=== PATIENT | male | born 1965 | race Caucasian/White ===

== ENCOUNTER 2024-05-21 20:43 | Emergency (ER) | payer SELFPAY ==
--- NOTE | ~2024-05-21 | XR_ITS ---
EXAMINATION: XR chest 2V DATE: 05/21/2024 21:08 INDICATION: Shortness of breath. TECHNIQUE: Frontal and lateral views of the chest were obtained. COMPARISON: None. FINDINGS: Calcified right lung nodules and calcified right hilar lymph nodes are consistent with old granulomatous disease. No pleural effusion or pneumothorax. The heart size is normal. There is mild c hronic anterior wedging of multiple vertebral bodies. IMPRESSION: 1. No acute cardiopulmonary disease. Reviewed, dictated and finalized at location A. RACTS INTERN
--- NOTE | ~2024-05-21 | CT_ITS ---
EXAMINATION: CTA chest PE protocol DATE: 05/22/2024 00:53 INDICATION: Shortness of breath. Tachycardia. TECHNIQUE: Computed tomography (CT) pulmonary angiogram of the chest was performed with 100 mL Omnipa que-350 intravenous contrast. Additional 3D reconstructions utilizing coronal maximum intensity proje ction (MIP) were performed. Automated exposure control and iterative reconstruction technique were em ployed. The dose-length product was 409.17 mGy-cm. COMPARISON: None FINDINGS: No pulmonary embolus and. There are few scattered small calcified pulmonary nodules along with calcif ied left hilar lymph nodes consistent with old granulomatous disease. Mild dependent atelectasis in t he bilateral lower lobes. No pneumonia, pulmonary edema, pleural effusion or pneumothorax. Borderline heart size. No pericardial effusion. Mildly aneurysmal ascending thoracic aorta measuring up to 4.2 cm in maximal diameter. No dissection. No pathologically enlarged thoracic lymphadenopathy. A couple cystic lesions at the right kidney the larger partially visualized measuring at least 3.9 cm. The sma ller measuring 3.1 cm with partial peripheral rim calcification and suggestion of a possible 405 mm p eripheral enhancing nodular component. There is also an 11 mm 3 hypoattenuation lesion at the left ki dney which could represent renal cell carcinoma or a proteinaceous/hemorrhagic cyst. Peripherally jennifer cified gallstone in the otherwise normal-appearing gallbladder. Mild thoracic spondylosis with chroni c mild compression fractures at T7 and T10. IMPRESSION: 1. No pulmonary emphysema or other acute cardiopulmonary disease. Reverse 2. Mildly aneurysmal ascending thoracic aorta measuring up to 4.2 cm maximal diameter. 3. A couple indeterminate renal lesions which could represent complex cysts or renal cell carcinomas. Would recommend further evaluation with pre and postcontrast MRI. 4. Cholelithiasis. Reviewed, dictated and finalized at location A. NICAL AGRONOMIST IMPRESSION: 1. No pulmonary emphysema or other acute cardiopulmonary disease. Reverse 2. Mildly aneurysmal ascending thoracic aorta measuring up to 4.2 cm maximal di ameter. 3. A couple indeterminate renal lesions which could represent complex cysts or renal cell carcinomas. Would recommend further evaluation with pre and postcont rast MRI. 4. Cholelithiasis.
--- NOTE | ~2024-05-21 | CT_ITS ---
EXAMINATION: CT brain wo con DATE: 05/22/2024 00:53 INDICATION: Altered mental status and vision changes TECHNIQUE: Computed tomography (CT) of the head was performed without intravenous contrast. Sagittal and coronal reconstructions were performed. The mA was adjusted according to patient size. Iterative reconstruction technique was employed. The dose-length product was 1059.33 mGy-cm. COMPARISON: None FINDINGS: The corrected the anterior limb of the left internal capsule. No acute intracranial hemorrhage, acute infarction or abnormal extra axial fluid collection. There is mild scattered white matter hypoattenu ation consistent with chronic small vessel ischemic disease. Symmetric prominence of the sulci and ve ntricles consistent with mild age-appropriate diffuse cerebral volume loss. Ventricles are normal and symmetric. No mass/mass effect. The orbits, paranasal sinuses and mastoid air cells are normal. IMPRESSION: 1. Small old lacunar infarct at the anterior left internal capsule. No acute intracranial process. 3. Age-related changes including mild blunting loss and mild scattered white matter hypoattenuation c onsistent with chronic small vessel ischemic disease. Reviewed, dictated and finalized at location A. BAND OPERATOR IMPRESSION: 1. Small old lacunar infarct at the anterior left internal capsule. No acute in tracranial process. 3. Age-related changes including mild blunting loss and mild scattered white ma tter hypoattenuation consistent with chronic small vessel ischemic disease.
[2024-05-21 20:45] VITALS: BP 186/108; PULSE 112; RESP 16; TEMP 36.4; O2SAT 99
--- NOTE | 2024-05-21 20:51 | ECG_ITS ---
Test Date: 2024-05-21 20:57:50 Measurements Intervals [place] Rate: 105 P: 26 AK: 124 QRS: -15 QRSD: 99 T: 29 QT: 344 QTc: 455 Interpretive Statements SINUS TACHYCARDIA POSSIBLE LEFT ATRIAL ENLARGEMENT [-0.1mV P WAVE IN V1/V2] POSSIBLE LEFT VENTRICULAR HYPERTROPHY [VOLTAGE CRITERIA PLUS LAE OR QRS WIDENING] No previous ECG available for comparison Electronically Signed On 05-22-2024 08:56:08 LEAD ENTERPRISE ARCHITECT by Liv Resendez M.D.
[2024-05-21 21:08] LABS: Basophils Absolute Auto 0.1 K/mm3 (0.0-0.1); Basophils Percent Auto 0.6 % (0.2-1.2); Eosinophils Absolute Auto 0.5 K/mm3 (0-0.3); Eosinophils Percent Auto 5.3 % (0-4.4); Hematocrit 42.5 % (42.0-52.0); Hemoglobin 14.7 g/dL (14.0-18.0); Immature Granulocyte Absolute 0.02 K/mm3 (0.00-0.031); Immature Granulocyte Percent A 0.2 % (0-0.5); Lymphocytes Absolute Auto 1.58 K/mm3 (0.9-3.2); Lymphocytes Percent Auto 17.7 % (18.3-44.2); Mean Corpuscular HGB Conc 34.6 g/dl (32-36); Mean Corpuscular Hemoglobin 31.2 pg (26-34); Mean Corpuscular Volume 90.2 fl (80-100); Mean Platelet Volume 9.3 fl (7.4-10.4); Monocytes Absolute Auto 0.9 K/mm3 (0.1-0.6); Monocytes Percent Auto 10.2 % (2.6-8.5); Neutrophils Absolute Auto 5.9 K/mm3 (1.3-6.7); Platelet Count Result 330 k/mm3 (150-375); Red Blood Count 4.71 M/mm3 (4.6-6.20); White Blood Count 8.9 K/mm3 (4.5-10.0)
[2024-05-21 21:20] LABS: Alanine Aminotransferase 22 U/L (6-50); Albumin Level 4.5 g/dL (3.5-5.1); Alkaline Phosphatase 70 U/L (38-126); Anion Gap 8 mmol/L (4-12); Aspartate Amino Transferase 35 U/L (17-59); Blood Urea Nitrogen 21 mg/dL (9-20); Calcium 9.3 mg/dL (8.4-10.2); Carbon Dioxide 25 mmol/L (22-30); Chloride 104 mmol/L (98-107); Estimated CRCL calculation 49 ml/min; Estimated Glomerular Filt Rate 45; Glucose 108 mg/dL (65-110); Lipase 118 U/L (23-300); Potassium 3.5 mmol/L (3.4-5.0); Sodium 137 mmol/L (137-145)
[2024-05-21 21:24] LABS: Prothrombin Time 13.5 Seconds (11.1-14.7)
[2024-05-21 21:25] LABS: Partial Thromboplastin Time 26.6 Seconds (22.3-36.8)
[2024-05-21 21:31] LABS: Troponin I < 0.012 ng/mL (0.000-0.034)
[2024-05-21 23:08] VITALS: PULSE 97
[2024-05-21 23:09] VITALS: BP 169/116; PULSE 100; RESP 19; O2SAT 98
[2024-05-21 23:16] VITALS: BP 165/114; PULSE 98; RESP 21; O2SAT 97
--- NOTE | 2024-05-21 23:55 | ECG_ITS ---
Test Date: 2024-05-22 00:06:28 Measurements Intervals [place] Rate: 92 P: 35 CT: 140 QRS: -15 QRSD: 109 T: 15 QT: 370 QTc: 458 Interpretive Statements SINUS RHYTHM POSSIBLE LEFT ATRIAL ENLARGEMENT [-0.1mV P-WAVE IN V1/V2] POSSIBLE LEFT VENTRICULAR HYPERTROPHY [VOLTAGE CRITERIA PLUS LAE OR QRS WIDENING] Compared to ECG 05/21/2024 20:57:50 Sinus tachycardia no longer present Electronically Signed On 05-22-2024 12:58:58 EXPENSE CLERK by Liv Resendez M.D.
[2024-05-22] MEDS: SODIUM CHLORIDE 0.9% IV 1,000 ML 999 ML IV CONT (00:19)
[2024-05-22 00:53] LABS: Troponin I < 0.012 ng/mL (0.000-0.034)
--- NOTE | 2024-05-22 01:25 | ED_ITS ---
HPI - Dizziness General Chief Complaint: Dizziness Stated Complaint: dizzy/short of breath Time Seen by Provider: 05/21/24 22:46 History of Present Illness HPI Narrative: Patient is a 58-year-old male who presents to the ER with complaints altered mental status, vision changes, dyspnea with exertion, and dizziness. He reports around 7:00 a.m. this morning he was at work and he started experiencing vision changes. Patient reports he did not tell anyone, but then as the day went on he was doing a task that is very routine for him and his co-worker pointed out that he was doing it incorrectly. Patient reports this was due to his brain being foggy. he reports throughout the day he has been seeing bright lights. patient also reports when he is walking he become short of breath. He is supposed to be on blood pressure medication but has not taken it 6 months because he does not have time to see a primary care provider. Patient reports he had a stroke 13 years ago. He denies any chest pain, back pain, or fevers. Related Data Allergies Allergy/AdvReac Type Severity Reaction Status Date / Time No Known Allergies Allergy Verified 05/21/24 23:07 Review of Systems 2 Review of Systems: All systems reviewed & are unremarkable except as noted in HPI and below Exam 2 Narrative: GENERAL: Well appearing, well-nourished, non-toxic, in no acute distress. HEAD: Normocephalic, atraumatic. NECK: Supple. No adenopathy, no masses. RESPIRATORY: Airway patent, respirations nonlabored. Clear to auscultation bilaterally, no rales, rhonchi, wheezing. CARDIOVASCULAR: Tachycardia and rhythm without murmurs, rubs, or gallops. Peripheral pulses 2+ and equal bilaterally. ABDOMINAL: Soft, nontender, nondistended, no hepatosplenomegaly. Normoactive BS. MUSCULOSKELETAL: Moves all extremities. Strength/ROM intact without gross deformities. SKIN: Warm, dry, normal color. No rashes. NEURO: A&O X3. Speech clear. Cranial nerves II-XII grossly intact. Steady gait. No ataxic movements. PSYCHIATRIC: Appropriate mood and affect. Normal interaction. Course Vital Signs Vital signs: Vital Signs Temperature 36.4 C 05/21/24 20:45 Pulse Rate 112 H 05/21/24 20:45 Respiratory Rate 16 05/21/24 20:45 Blood Pressure 186/108 H 05/21/24 20:45 Pulse Oximetry 99 05/21/24 20:45 Oxygen Delivery Room Air 05/21/24 20:45 Temperature 36.4 C 05/21/24 20:45 Pulse Rate 86 05/22/24 02:01 Respiratory Rate 17 05/22/24 02:01 Blood Pressure 149/100 H 05/22/24 02:01 Pulse Oximetry 98 05/22/24 02:01 Oxygen Delivery Room Air 05/21/24 20:45 MDM - Dizziness MDM Narrative Medical decision making narrative: Patient is a 58-year-old male who presents to the ER with complaints altered mental status, vision changes, dyspnea with exertion, and dizziness. He reports around 7:00 a.m. this morning he was at work and he started experiencing vision changes. Patient reports he did not tell anyone, but then as the day went on he was doing a task that is very routine for him and his co-worker pointed out that he was doing it incorrectly. Patient reports this was due to his brain being foggy. he reports throughout the day he has been seeing bright lights. patient also reports when he is walking he become short of breath. He is supposed to be on blood pressure medication but has not taken it 6 months because he does not have time to see a primary care provider. Patient reports he had a stroke 13 years ago. He denies any chest pain, back pain, or fevers. Labs Ordered: CBC, CMP, coags, COVID Imaging Ordered: CTA chest Results: Patient's CTA chest indicates no acute abnormality. His head CT scan was unremarkable. Patient's CBC was unremarkable. His coags were unremarkable. Patient's CMP indicates a BUN of 21, creatinine of 1.6, GFR of 45. He will be treated with 1 L normal saline IV bolus to treat patient's probable dehydration. Diagnosis: mild dehydration Patient Education/Shared MDM: 0200- Patient reports he has a massive headache. He told his nurse that in case the nurse practitioner needs to know I am not driving, so she can give me something strong, but I am allergic to some pain medications. Pt was offered a dose of Toradol IV, but he declined. 0300- Upon reexamination patient reports he is feeling better. Results shared with patient. He reports he is ready to be discharged home. Patient will not be discharged with any new prescriptions. He was advised to try to keep hydrated. Pt verbalizes understanding and is in agreement with plan. 0330- Patient is now requesting Toradol for pain control. Will give patient a dose before he is discharged home. Differential Diagnosis Differential diagnosis: Likely cerebrovascular accident, transient cerebral ischemia and other (dehydration, pulmonary embolism) Lab Data Attestation: I reviewed the patient's lab results. 05/21/24 21:01 05/21/24 21:01 Labs: Lab Results 05/21/24 05/22/24 Range/Units 21:01 00:13 WBC 8.9 (4.5-10.0) K/mm3 RBC 4.71 (4.6-6.20) M/mm3 Hgb 14.7 (14.0-18.0) g/dL Hct 42.5 (42.0-52.0) % MCV 90.2 (80-100) fl MCH 31.2 (26-34) pg MCHC 34.6 (32-36) g/dl RDW 13.0 (11.5-14.5) % Plt Count 330 (150-375) k/mm3 MPV 9.3 (7.4-10.4) fl Immature Gran % (Auto) 0.2 (0-0.5) % Neut % (Auto) 66.0 (45.5-73.1) % Lymph % (Auto) 17.7 L (18.3-44.2) % [place] % (Auto) 10.2 H (2.6-8.5) % Eos % (Auto) 5.3 H (0-4.4) % Baso % (Auto) 0.6 (0.2-1.2) % Lymph # (Auto) 1.58 (0.9-3.2) K/mm3 [place] # (Auto) 0.9 H (0.1-0.6) K/mm3 Eos # (Auto) 0.5 H (0-0.3) K/mm3 Baso # (Auto) 0.1 (0.0-0.1) K/mm3 Abs Immat Gran (auto) 0.02 (0.00-0.031) K/mm3 Absolute Neuts (auto) 5.9 (1.3-6.7) K/mm3 Absolute Nucleated RBC 0.000 (0.0-0.012) K/mm3 Nucleated RBC % 0.0 (0.0-0.2) % PT 13.5 (11.1-14.7) Seconds INR 1.0 APTT 26.6 (22.3-36.8) Seconds Sodium 137 (137-145) mmol/L Potassium 3.5 (3.4-5.0) mmol/L Chloride 104 (98-107) mmol/L Carbon Dioxide 25 (22-30) mmol/L Anion Gap 8 (4-12) mmol/L BUN 21 H (9-20) mg/dL Creatinine 1.60 H (0.7-1.3) mg/dL Estim Creat Clear Calc 49 ml/min Estimated GFR 45 L (59 - ) Glucose 108 (65-110) mg/dL Calcium 9.3 (8.4-10.2) mg/dL Total Bilirubin 1.0 (0.2-1.3) mg/dL AST 35 (17-59) U/L ALT 22 (6-50) U/L Alkaline Phosphatase 70 (38-126) U/L Troponin I < 0.012 < 0.012 (0.000-0.034) ng/mL Total Protein 8.0 (6.3-8.2) g/dL Albumin 4.5 (3.5-5.1) g/dL Lipase 118 (23-300) U/L Imaging Data Attestation: I personally reviewed and interpreted this imaging study as follows: Radiologist's impression: All of patient's CT scans showed no acute abnormalities. Discharge Plan Discharge Clinical Impression: Dehydration, mild Patient Disposition: Home, Self-Care Condition: Stable Instructions: Antibiotic Form, Dehydration (ED) Additional Instructions: Please return to the ER with an worsening symptoms. Follow-up with a primary care provider in the next 2-3 days. Patient Language: Hebrew Follow-up/Referrals: PHYSICIAN NOT ON STAFF,NONSTAFF [Primary Care Provider] - Time of Disposition: 03:25
[2024-05-22 01:55] VITALS: BP 149/98; PULSE 97; RESP 18; O2SAT 98
[2024-05-22 02:01] VITALS: BP 149/100; PULSE 86; RESP 17; O2SAT 98
--- NOTE | 2024-05-22 02:35 | PC.NURSE ---
pt verbalized needing pain medication due to increase in headache. pt states, I cannot take hydrocodone, codeine, percocet, toradol, and morphine pt verbalized side effects of taking these medications. pt states the medications he can take fentanyl and tylenol . this rn verbalized medication issues with nnps stanislaw at this time. toradol medication was discontinued at this time due to patient refusal.
[2024-05-22] MEDS: KETOROLAC 15 MG/ML VIAL (*BKC) IV PUSH (03:38)
--- OUTSIDE RECORDS SUMMARY | 2024-05-25 15:12 | XMS_ITS | Clinical Summary ---
Author Organization [facility] Address [address] [place] [address] Phone Care Team Providers Care Camp Head Counselor Name Role Phone Provider, None Primary Care Provider Unavailabl e Allergies Active Allergy Reactions Criticality Noted Date Comments Lisinopril Swelling 12/01/2019 Tongue and throat Other-Environmental Allergen (Not Found In Search) Other (see Comments) 12/01/2019 Some pain medication unknown what-shut kidneys down Medications AMLODIPINE BESYLATE PO Take 10 mg by mouth daily. Active metoprolol Succinate (TOPROL-XL) 25 MG TABLET SR 24 HR Take 25 mg by mouth daily. Active aspirin EC 81 MG Tablet Delayed Response Take 81 mg by mouth daily. Active Social History Tobacco Use Types Packs/Day Years Used Date Smoking Tobacco: Never Assessed Sex and Gender Information Value Date Recorded Sex Assigned at Not on file Legal Sex Male 8:33 PM CDT Gender Identity Not on file Sexual Orientation Not on file Last Filed Vital Signs Vital Sign Reading Time Taken Comments Blood Pressure 137/95 12/02/2019 12:17 AM EDT Pulse 83 12/01/2019 11:56 PM EDT Temperature 37.4 ??C (99.3 ??F) 12/01/2019 9:45 PM ED T Respiratory Rate 16 12/01/2019 10:36 PM EDT Oxygen Saturation 98% 12/01/2019 11:56 PM EDT Inhaled Oxygen Concentration - - Weight 74.8 kg (165 lb) 12/01/2019 9:45 PM EDT Height 180.3 cm (5' 11 ) 12/01/2019 9:45 PM EDT Body Mass Index 23.01 12/01/2019 9:45 PM EDT Plan of Treatment Not on file Care Teams Camp Head Counselor Relationship Specialty Start Date End Date Provider, None [place] PCP - General 12/01/19
--- OUTSIDE RECORDS SUMMARY | 2024-05-25 15:13 | XMS_ITS | Encounter Summary ---
Author Organization [facility] [place] [place] Address [address] [place] [address] Care Team Providers Care Paraprofessional Education Assistant Name Role Phone Asked, No Pcp Primary Care Provider Unavailabl e Encounter Details Date Type Department Care Team (Latest Contact Info) Description 07/15/2021 Travel Social History Tobacco Use Types Packs/Day Years Used Date Smoking Tobacco: Never Smokeless Tobacco: Never Alcohol Use Standard Drinks/Week Comments Yes 0 (1 standard drink = 0.6 oz pur e alcohol) social PHQ-2 Answer Date Recorded PHQ-9 Total Score 0 07/15/2021 Sex and Gender Information Value Date Recorded Sex Assigned at Not on file Legal Sex Male 3:17 AM GANG LEADER Gender Identity Not on file Sexual Orientation Not on file COVID-19 Exposure Response Date Recorded In the last month, have you been in contact with someone who was confirmed or suspected to have Coronavirus / COVID-19? No / Unsure 07/15/2021 12:49 AM GANG LEADER documented as of this encounter Plan of Treatment Not on file documented as of this encounter Visit Diagnoses Not on filedocumented in this encounter Care Teams Paraprofessional Education Assistant Relationship Specialty Start Date End Date Asked, No Pcp [phone] PCP - General 07/15/21 documented as of this encounter
--- OUTSIDE RECORDS SUMMARY | 2024-05-25 15:13 | XMS_ITS | Encounter Summary ---
Author Organization [employer] Care Team Providers Care Track Mechanic Name Role Phone Provider, None Primary Care Provider Unavailabl e Encounter Details Date Type Department Care Team (Latest Contact Info) Description 12/01/2019 Travel Social History Tobacco Use Types Packs/Day [...] have Coronavirus / COVID-19? No / Unsure 12/01/2019 9:33 PM CDT documented as of this encounter Plan of Treatment Not on file documented as of this encounter Visit Diagnoses Not on filedocumented in this encounter Care Teams Track Mechanic Relationship Specialty Start Date End Date Provider, None [place] PCP - General 12/01/19 documented as of this encounter
--- OUTSIDE RECORDS SUMMARY | 2024-05-25 15:13 | XMS_ITS | Encounter Summary ---
Author Organization [facility] Address [address] [place] [address] Care Team Providers Care Cmm Operator Name Role Phone Asked, No Pcp Primary Care Provider Unavailabl e Reason for Visit * Reason Comments Toe Pain * Auth/Cert Specialty Diagnoses / Procedures Referred By Contac t Referred To Contact Referral ID Status Reason Start Date Expiration Date Visits Re quested Visits Authorized [id number] 1 1 Encounter Details Date Type Department Care Team (Late st Contact Info) Description 07/15/2021 1:35 AM LAB ASST - 07/15/2021 2:55 AM LAB ASST Emergency [facility] Main Emergency Department [address] [place] [phone] Danielle Baird MD [address] [facility] [address] [place], [place] [id number] Closed displaced fracture of phalanx of lesser toe of right foot, unspecified phalanx, initial encounter (Primary Dx) Discharge Disposition: Discharge Home Social History Tobacco Use Types Packs/Day Years Used Date Smoking Tobacco: Never Smokeless Tobacco: Never Alcohol Use Standard Drinks/Week Comments Yes 0 (1 standard drink = 0.6 oz pur e alcohol) social PHQ-2 Answer Date Recorded PHQ-9 Total Score 0 07/15/2021 Sex and Gender Information Value Date Recorded Sex Assigned at Not on file Legal Sex Male 3:17 AM LAB ASST Gender Identity Not on file Sexual Orientation Not on file COVID-19 Exposure Response Date Recorded In the last month, have you been in contact with someone who was confirmed or suspected to have Coronavirus / COVID-19? No / Unsure 07/15/2021 12:49 AM LAB ASST documented as of this encounter Last Filed Vital Signs Vital Sign Reading Time Taken Comments Blood Pressure 152/100 07/15/2021 2:47 AM LAB ASST Pulse 80 07/15/2021 2:47 AM LAB ASST Temperature 37.1 ??C (98.8 ??F) 07/15/2021 1:11 AM CS T Respiratory Rate 16 07/15/2021 2:47 AM LAB ASST Oxygen Saturation 100% 07/15/2021 2:47 AM LAB ASST Inhaled Oxygen Concentration - - Weight 74.8 kg (165 lb) 07/15/2021 1:12 AM LAB ASST Height 180.3 cm (5' 11 ) 07/15/2021 1:12 AM LAB ASST Body Mass Index 23.01 07/15/2021 1:12 AM LAB ASST documented in this encounter Discharge Instructions * Attachments The following attachments cannot be sent through Care Everywhere. * Fracture, Toe, Closed ([place]) documented in this encounter Medications at Time of Discharge amLODIPine (NORVASC) 10 mg tablet 10 mg = 1 tab, PO, Daily, # 90 tab, 0 Refill(s), called to pharmacy 04/20/2018 metoprolol succinate XL (TOPROL-XL) 50 mg 24 hr tablet 50 mg = 1 tab, PO, Daily, # 90 tab, 0 Refill(s), Pharmacy: [facility], 180.34, cm, 11/15/19 9:14:00 CDT, Height, 77.727, kg, 11/15/19 9:14:00 CDT, Weight 02/07/2020 acetaminophen-co deine (TYLENOL WITH CODEINE #3) 300-30 mg per tabletIndication s:acute pain Take 1 tablet by mouth every 6 (six) hours as needed for moderate pain for up to 3 days .acute pain. 12 tablet 07/15/2021 07/18/2021 documented as of this encounter ED Notes * Esther Cochran, ELIZA - 07/15/2021 1:14 AM CST PT complaining of pain in small toe of right foot. No gross deformity. ASST * Danielle Baird MD - 07/15/2021 12:44 AM CSTAssociated Order(s): Ortho Injury - Lower Images from the original note were not included. Emergency Department Provider Note Location: [facility] EMERGENCY DEPARTMENT AT [facility] Patient ID: Thomas Thorpe is a 55 y.o. male. Arrival Date/Time: 07/15/2021 0034 Chief Complaint Chief Complaint Patient presents with ??? Toe Pain History of Present Illness 55-year-old male presents emergency department for evaluation of right fifth toe injury. The patient states that he was going to the restroom when he turned around he hit his toe. He states that he jammed his fifth toe and it is now not pointing the right direction. He denies numbness or other acute injury. History provided by: Patient Injury Location: Right 5th toe Severity: Moderate Onset quality: Sudden Timing: Constant Progression: Unchanged Chronicity: New History Allergies No Known Allergies Past Medical History Past Medical History: Diagnosis Date ??? History of knee surgery 1985 right knee, sports ??? Hypertension Past Surgical History Past Surgical History: Procedure Laterality Date ??? KNEE CARTILAGE SURGERY Right 1985 sports injury ??? SHOULDER SURGERY Right Past Family History No family history on file. Past Social History Social History Tobacco Use ??? Smoking status: Never Smoker ??? Smokeless tobacco: Never Used Vaping Use ??? Vaping Use: Never used Substance and Sexual Activity ??? Alcohol use: Yes Comment: social ??? Drug use: Never ??? Sexual activity: Not on file Social History Narrative ??? Not on file Medications ED Medications Medication Sig Disc. Start Date End Date Taking? Authorizing Provider acetaminophen-codeine (TYLENOL WITH CODEINE #3) 300-30 mg per tablet Take 1 tablet by mouth every 6(six) hours as needed for moderate pain for up to 3 days .acute pain. 07/15/21 07/18/21 Danielle Baird MD amLODIPine (NORVASC) 10 mg tablet 10 mg = 1 tab, PO, Daily, # 90 tab, 0 Refill(s), called to pharmacy 04/20/18 Yes Provider, MD Christine metoprolol succinate XL (TOPROL-XL) 50 mg 24 hr tablet 50 mg = 1 tab, PO, Daily, # 90 tab, 0 Refill(s), Pharmacy: [facility], 180.34, cm, 11/15/19 9:14:00 CDT, Height, 77.727, kg, 11/15/19 9:14:00 CDT, Weight 02/07/20 Yes Provider, Christine, Review of Systems Review of Systems Musculoskeletal: Positive for arthralgias and joint swelling. Skin: Negative for wound and skin lesions. All other systems reviewed and are negative. Physical Exam ED Triage Vitals Temp Pulse Resp BP SpO2 -- -- -- -- -- Temp src Heart Rate Source Patient Position BP Location FiO2 % -- -- -- -- -- Physical Exam Vitals and nursing note reviewed. Constitutional: General: He is not in acute distress. Appearance: He is well-developed. HENT: Head: Normocephalic and atraumatic. Eyes: General: Right eye: No discharge. Left eye: No discharge. Conjunctiva/sclera: Conjunctivae normal. Pupils: Pupils are equal, round, and reactive to light. Cardiovascular: Rate and Rhythm: Normal rate and regular rhythm. Pulmonary: Effort: Pulmonary effort is normal. No respiratory distress. Breath sounds: Normal breath sounds. No wheezing. Abdominal: General: There is no distension. Palpations: Abdomen is soft. Tenderness: There is no abdominal tenderness. There is no guarding or rebound. Musculoskeletal: General: Normal range of motion. Cervical back: Normal range of motion and neck supple. Legs: Skin: General: Skin is warm. Findings: No erythema or rash. Neurological: Mental Status: He is alert and oriented to person, place, and time. Cranial Nerves: No cranial nerve deficit. Coordination: Coordination normal. ED Course ED Course as of 07/15/21 0233 Sun Jul 15, 2021 0201 Reduction of fracture done at the bedside. Offered digital block but the patient declined. After reduction with traction, improved alignment. NV intact. David taped. Recommend podiatry f/u. 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 Recommend hard sole shoe, no pain medication while driving so he will use tylenol/motrin. [EH] 0202 The patient is hemodynamically stable. The patient has a benign exam. I will discharge the patient home. The patient is to follow up with his regular doctor this week. The patient is to return immediately for worsening of his condition or other concerns. The patient agrees and understands thismanagement plan. All questions have been answered. The patient was given discharge instructions. I do not believe that the patient has an acute emergency medical condition requiring additional emergency management at this time. The patient is currently stable for outpatient treatment and continuation of care. [EH] ED Course User Index [EH] Danielle Baird MD Clinical Impressions as of 07/15/21 0233 Closed displaced fracture of phalanx of lesser toe of right foot, unspecified phalanx, initial encounter MDM MDM Number of Diagnoses or Management Options Closed displaced fracture of phalanx of lesser toe of right foot, unspecified phalanx, initial encounter: new and requires workup Diagnosis management comments: Will get Xray. Amount and/or Complexity of Data Reviewed Tests in the radiology section of CPT??: ordered and reviewed Risk of Complications, Morbidity, and/or Mortality Presenting problems: moderate Labs No results found for this visit on 07/15/21. Radiology XR Toe 2+ Vw Right Result Date: 07/15/2021 Narrative: EXAMINATION: XR TOE 2 VW RIGHT CLINICAL HISTORY: 55 years Male right 5th toe injury COMPARISON: None. IMPRESSION: 1.There is a mildly comminuted minimally displaced fracture of the distal shaft of the proximal phalanx of the fifth digit with slight apex medial angulation and overlying soft tissue swelling. 2.No other acute fracture or dislocation identified in the right foot. [id number] Procedures Ortho Injury - Lower Performed by: Danielle Baird MD Authorized by: Danielle Baird MD Consent: Consent obtained: Verbal Consent given by: Patient Risks discussed: Fracture, irreducible dislocation, nerve damage, recurrent dislocation, restrictedjoint movement and vascular damage Alternatives discussed: No treatment, delayed treatment, alternative treatment, immobilization and referral Location: Location: Toe Pre-procedure details: Injury Type: Fracture Neurological function: normal Distal perfusion: normal Range of motion: reduced Anesthesia (see MAR for exact dosages): Anesthesia method: None Procedure details: Manipulation performed: yes Toe reduction method: Direct traction Reduction successful: yes Immobilization: Tape Post-procedure details: Neurological function: normal Distal perfusion: normal Range of motion: unchanged Patient tolerance of procedure: Tolerated well, no immediate complications Differential Diagnoses This patient has a differential diagnosis of . Final Diagnoses Final diagnoses: Closed displaced fracture of phalanx of lesser toe of right foot, unspecified phalanx, initial encounter Disposition This patient has a disposition of Discharge. ED Attestations Attestations Danielle Baird MD 07/15/21 0046 Danielle Baird MD 07/15/21 0233 ASST ASST documented in this encounter Plan of Treatment Not on file documented as of this encounter Procedures Procedure Name Priority Date/Time Associated Diagnosis Comments XR TOE 2+ VW RIGHT STAT 07/15/2021 1: 10 AM LAB ASST AR OPEN TX DISTAL PHALANGEAL FRACTURE EACH Routine 07/15/2021 12:44 AM LAB ASST documented in this encounter Results * XR Toe 2+ Vw Right (07/15/2021 1:10 AM LAB ASST) Anatomical Region Laterality Modality Lower Extremities, Toes Right Computed Radiography 07/15/2021 2:09 AM LAB ASST Narrative 07/15/2021 2:11 AM LAB ASST EXAMINATION: ??XR TOE 2 ??VW RIGHT CLINICAL HISTORY: 55 years Male ??right 5th toe injury COMPARISON: ??None. IMPRESSION: 1.There is a mildly comminuted minimally displaced fracture of the distal shaft of the proximal phalanx of the fifth digit with slight apex medial angulation and overlying soft tissue swelling. 2.No other acute fracture or dislocation identified in the right foot. [id number] Procedure Note Juan Alberto Montoya MD - 07/15/2021 EXAMINATION: XR TOE 2 VW RIGHT CLINICAL HISTORY: 55 years Male right 5th toe injury COMPARISON: None. IMPRESSION: 1.There is a mildly comminuted minimally displaced fracture of the distalshaft of the proximal phalanx of the fifth digit with slight apex medialangulation and overlying soft tissue swelling. 2.No other acute fracture or dislocation identified in the right foot. [id number] Danielle Baird MD IMG DIAGNOSTIC IMAGIN G ORDERABLES Final Result * AR OPEN TX DISTAL PHALANGEAL FRACTURE EACH (07/15/2021 12:44 AM LAB ASST) Narrative Danielle Baird MD - 07/15/2021 12:44 AM LAB ASST Danielle Baird MD ? 07/15/2021 ??2:33 AM Ortho Injury - Lower Performed by: Danielle Baird MD Authorized by: Danielle Baird MD Consent: ??Consent obtained: ??Verbal ??Consent given by: ??Patient ??Risks discussed: ??Fracture, irreducible dislocation, nerve damage, recurrent dislocation, restricted joint movement and vascular damage ??Alternatives discussed: ??No treatment, delayed treatment, alternative treatment, immobilization and referral Location: ??Location: ??Toe Pre-procedure details: ??Injury Type: ??Fracture ??Neurological function: normal ?Distal perfusion: normal ?Range of motion: reduced ?? Anesthesia (see MAR for exact dosages): ??Anesthesia method: ??None Procedure details: ??Manipulation performed: yes ?Toe reduction method: ??Direct traction ??Reduction successful: yes ?Immobilization: ??Tape Post-procedure details: ??Neurological function: normal ?Distal perfusion: normal ?Range of motion: unchanged ?Patient tolerance of procedure: ??Tolerated well, no immediate complications Danielle Baird MD PROCEDURE/MINOR SURGI PITO ORDERABLES Final Result documented in this encounter Visit Diagnoses Diagnosis Closed displaced fracture of phalanx of lesser toe of right foot, unspecified phalanx, initial encounter- Primary documented in this encounter Care Teams Cmm Operator Relationship Specialty Start Date End Date Asked, No Pcp [id number] PCP - General 07/15/21 documented as of this encounter
--- OUTSIDE RECORDS SUMMARY | 2024-05-25 15:13 | XMS_ITS | Encounter Summary ---
Author Organization [facility] Address [address] [place] [address] Phone Care Team Providers Care Manager Discovery Name Role Phone Provider, None Primary Care Provider Unavailabl e Reason for Visit * Reason Comments High Blood Pressure Encounter Details Date Type Department Care Team (Late st Contact Info) Description 12/01/2019 9:36 PM EDT - 12/02/2019 12:35 AM EDT Emergency [facility] Emergency [address] [place] [id number] Zackary Farrell MD [address] [place] [address] Dehydration Discharge Disposition: Discharged to home or Selfcare Social History Tobacco Use Types Packs/Day Years [...] PM CDT documented as of this encounter Last Filed [...] Mass Index 23.01 12/01/2019 9:45 PM EDT documented in this encounter Discharge Instructions * Discharge Instructions* Zackary Farrell MD - 12/02/2019 12:25 AM EDT The examination and treatment you have received in the Emergency Department has been given on an emergency basis only. Follow-up with your doctor if you are not improving in 2-3 days. Should your condition worsen or any new symptoms develop, or you do not recover as expected, immediately contact your doctor or the doctor you were given for follow-up care or return to the Emergency Department. ZACKARY FARRELL MD 12/02/2019 Drink fluids. Continue to take your current medications: Amlodipine 10 mg in a.m. and the metoprolol succinate 25mg, increase it to 2 tablets daily, take at bedtime. Just take what you have in your current supplyof medications Start taking an aspirin 81 mg daily. Increased potassium foods in your diet, list given to you. Watch the video about hypertension. Call your PCP for any additional problems or return to the ED while you remain in the area. * Attachments The following attachments cannot be sent through Care Everywhere. * Hypokalemia, Discharge Instructions (Martiniquais) * Hypokalemia (Martiniquais) * High Blood Pressure, Established, Out of Control (Martiniquais) * Hypertension - VIDEO (Martiniquais) documented in this encounter Medications at Time of Discharge AMLODIPINE BESYLATE PO Take 10 mg by mouth daily. aspirin EC 81 MG Tablet Delayed Response Take 81 mg by mouth daily. metoprolol Succinate (TOPROL-XL) 25 MG TABLET SR 24 HR Take 25 mg by mouth daily. documented as of this encounter ED Notes * Danika Bowie RN - 12/02/2019 12:34 AM EDT Discharge instructions given with patient verbalizing understanding. Discharged in stable conditionper ambulatory. * Danika Bowie RN - 12/02/2019 12:20 AM EDT 0020 Patient reports lightheadedness and weakness has improved after receiving IV fluids. Discussedwith patient to increase oral fluid intake without caffeine. * Danika Bowie RN - 12/01/2019 9:55 PM EDT Patient here with c/o blood pressure increasing the past week. Tonight diastolic 102. Patient saw slip mixer on the 9 and pressure was elevated then and was instructed to monitor. Also c/o dizziness, weakness, shaking and loss of smell this evening. Patient here working. Patient is from [place]. * Zackary Farrell MD - 12/01/2019 9:40 PM EDT Chief Complaint Patient presents with ??? High Blood Pressure High Blood Pressure Patient here with c/o blood pressure increasing the past week. Tonight diastolic 102. Patient saw slip mixer on the 9 and pressure was elevated then and was instructed to monitor. Also c/o dizziness, weakness, shaking and loss of smell this evening. Patient here working. Patient is from [place]. The history is provided by the patient. 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 He has been taking blood pressure medications for last 8 years now. 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 He says he does have a 90 day supply of his antihypertensive medications. His been feeling dizzy probably brought about by not drinking enough fluids. He denies any headaches otherwise, blurred vision, chest pain, shortness of breath, nausea, vomiting or any gait disturbance. His been monitoring his blood pressures lately and has been noted to be high urine than usual. He had seen his slip mixer in [place] and blood pressure was higher at that time and he was told justto continue monitoring his blood pressures. Patient does not want to be tested for Covid 19. Patient denies any smoking, rarely drink alcohol, does not use any illicit drug use, including marijuana. No current facility-administered medications for this encounter. Current Outpatient Medications Medication Sig Dispense Refill ??? AMLODIPINE BESYLATE PO Take 10 mg by mouth daily. ??? aspirin EC 81 MG Tablet Delayed Response Take 81 mg by mouth daily. ??? metoprolol Succinate (TOPROL-XL) 25 MG TABLET SR 24 HR Take 25 mg by mouth daily. Allergies Allergen Reactions ??? Lisinopril Swelling Tongue and throat ??? Other-Environmental Allergen (Not Found In Search) Other (see Comments) Some pain medication unknown what-shut kidneys down Past Medical History Positives Diagnosis Date ??? Hypertension ??? Stroke (HCC) tia No past surgical history on file. Social History Socioeconomic History ??? Marital status: Spouse name: Not on file ??? Number of children: Not on file ??? Years of education: Not on file ??? Highest education level: Not on file Occupational History ??? Not on file Social Needs ??? Financial resource strain: Not on file ??? Food insecurity: Worry: Not on file Inability: Not on file ??? Transportation needs: Medical: Not on file Non-medical: Not on file Tobacco Use ??? Smoking status: Not on file Substance and Sexual Activity ??? Alcohol use: Not on file ??? Drug use: Not on file ??? Sexual activity: Not on file Lifestyle ??? Physical activity: Days per week: Not on file Minutes per session: Not on file ??? Stress: Not on file Relationships ??? Social connections: Talks on phone: Not on file Gets together: Not on file Attends mandaen service: Not on file Active member of club or organization: Not on file Attends meetings of clubs or organizations: Not on file Relationship status: Not on file ??? Intimate partner violence: Fear of current or ex partner: Not on file Emotionally abused: Not on file Physically abused: Not on file Forced sexual activity: Not on file Other Topics Concern ??? Not on file Social History Narrative ??? Not on file BP (!) 137/95 Pulse 83 Temp 99.3 ??F (37.4 ??C) (Temporal) Resp 16 Ht 5' 11 (1.803 m) Wt165 lb (74.8 kg) SpO2 98% BMI 23.01 kg/m?? Review of Systems Constitutional: Negative. Negative for fatigue. HENT: Negative. Eyes: Negative. Negative for visual disturbance. Respiratory: Negative. Negative for shortness of breath. Cardiovascular: Negative. Negative for chest pain and palpitations. Gastrointestinal: Negative. Genitourinary: Positive for decreased urine volume (Patient does not drink much fluids.). Negative for dysuria and flank pain. Musculoskeletal: Negative. Negative for arthralgias. Skin: Negative. Neurological: Positive for dizziness. Negative for syncope and weakness. Psychiatric/Behavioral: Negative. Negative for sleep disturbance. All other systems reviewed and are negative. Physical Exam Vitals signs and nursing note reviewed. Constitutional: Appearance: Normal appearance. He is well-developed. HENT: Head: Normocephalic and atraumatic. Right Ear: External ear normal. Left Ear: External ear normal. Nose: Nose normal. Eyes: Extraocular Movements: Extraocular movements intact. Conjunctiva/sclera: Conjunctivae normal. Pupils: Pupils are equal, round, and reactive to light. Neck: Musculoskeletal: Normal range of motion and neck supple. Cardiovascular: Rate and Rhythm: Normal rate and regular rhythm. Pulses: Normal pulses. Heart sounds: Normal heart sounds. Pulmonary: Effort: Pulmonary effort is normal. Breath sounds: Normal breath sounds. Abdominal: General: Bowel sounds are normal. Palpations: Abdomen is soft. Musculoskeletal: Normal range of motion. Lymphadenopathy: Cervical: No cervical adenopathy. Skin: General: Skin is warm and dry. Neurological: General: No focal deficit present. Mental Status: He is alert and oriented to person, place, and time. Psychiatric: Behavior: Behavior normal. Thought Content: Thought content normal. Judgment: Judgment normal. Procedures Imaging Results None EKG shows normal sinus rhythm, rate of 73 beats per minute, no acute ST or T changes noted, QTC 436milliseconds. Results for orders placed or performed during the hospital encounter of 12/01/19 CMP (Comprehensive Metabolic Panel) Result Value Ref Range SODIUM 143 136 - 145 mmol/L POTASSIUM 3.4 (L) 3.5 - 5.1 mmol/L CHLORIDE 107 98 - 107 mmol/L CO2, VENOUS 24 22 - 30 mmol/L ANION GAP 12.0 <18.0 mmol/L GLUCOSE 100 (H) 70 - 99 mg/dL BUN 15 8 - 26 mg/dL CREATININE, BLOOD 1.11 0.70 - 1.30 mg/dL BUN/CREATININE RATIO 14 12 - 20 ratio TOTAL PROTEIN 8.2 6.3 - 8.2 g/dL ALBUMIN 4.6 3.5 - 5.0 g/dL A/G RATIO 1.3 1.0 - 2.2 CALCIUM 9.4 9.1 - 10.5 mg/dL T BILI 0.6 0.2 - 1.2 mg/dL SGOT (AST) 16 5 - 34 U/L SGPT (ALT) 21 0 - 55 U/L ALKALINE PHOSPHATASE 70 40 - 150 U/L GFR, EST. NONAFRICAN >60 >=60 GFR, EST. >60 >=60 Urinalysis Reflex if Indicated by Abnormal Results Result Value Ref Range SPECIFIC GRAVITY 1.015 1.003 - 1.030 URINE PH 7.0 5.0 - 9.0 WBC ESTERASE Negative Negative NITRITE Negative Negative PROTEIN, RANDOM URINE Negative Negative URINE GLUCOSE, QUAL Negative Negative URINE KETONES Negative Negative UROBILINOGEN 1.0 0.2 , 1.0 , Normal mg/dL URINE BILIRUBIN Negative Negative URINE BLOOD Negative Negative joanne/ul URINALYSIS COLOR Yellow URINALYSIS CLARITY Clear Lipase Result Value Ref Range LIPASE 44 8 - 78 U/L Magnesium (Mg) Result Value Ref Range MAGNESIUM 2.2 1.6 - 2.6 mg/dL Thyroid Stimulating Hormone (TSH) Result Value Ref Range TSH 1.424 0.300 - 5.000 mIU/L Troponin I (Trp I) Result Value Ref Range TROPONIN I <0.010 <0.028 ng/mL Creatine Kinase (CK) Total Result Value Ref Range CK (CPK) 95 30 - 200 U/L B-Type Natriuretic Peptide (BNP) Result Value Ref Range B TYPE NATRIURETIC PEPTIDE <10 <100 pg/mL Ur Drug Screen w/o Confirmation Result Value Ref Range UR AMPHETAMINE/METHAMPHETAMINE NON DETECTED NON DETECTED UR BARBITURATE NON DETECTED NON DETECTED UR BENZODIAZEPINES NON DETECTED NON DETECTED URINE BUPRENORPHINE NON DETECTED NON DETECTED UR COCAINE METABOLITE NON DETECTED NON DETECTED UR ECSTASY NON DETECTED NON DETECTED UR HEROIN (6AM) NON DETECTED NON DETECTED METHADONE NON DETECTED NON DETECTED UR OPIATES NON DETECTED NON DETECTED UR OXYCODONE NON DETECTED NON DETECTED UR PHENCYCLIDINE NON DETECTED NON DETECTED UR CANNABINOID NON DETECTED NON DETECTED PH, URINE 7.0 4.5 - 8.5 UR TEMPERATURE CBC with Auto Differential Result Value Ref Range WBC 7.37 4.00 - 12.00 10(3)/mcL RBC 5.26 4.40 - 5.80 10(6)/mcL HEMOGLOBIN (HGB) 16.3 13.0 - 16.5 g/dL HEMATOCRIT (HCT) 47.5 38.0 - 50.0 % MCV 90.3 82.0 - 96.0 fL MCH 31.0 26.0 - 32.0 pg MCHC 34.3 31.0 - 36.0 g/dL PLATELET COUNT 371 140 - 440 10(3)/mcL RDW 13.0 11.8 - 15.5 % MPV 8.8 8.0 - 12.6 fL NEUTROPHILS 61.2 40.0 - 68.0 % LYMPHOCYTES 23.9 19.0 - 49.0 % MONOCYTES 11.1 3.0 - 13.0 % EOSINOPHILS 3.4 0.0 - 8.0 % BASOPHILS 0.4 0.0 - 1.0 % ABSOLUTE NEUTROPHILS 4.51 1.40 - 5.30 10(3)/mcL ABSOLUTE LYMPHOCYTES 1.76 0.90 - 3.30 10(3)/mcL ABSOLUTE MONOCYTES 0.82 0.10 - 0.90 10(3)/mcL ABSOLUTE EOSINOPHIL 0.25 0.00 - 0.50 10(3)/mcL ABSOLUTE BASOPHILS 0.03 0.00 - 0.10 10(3)/mcL NRBC PER 100 WBC 0 Medications 0.9 % sodium chloride solution (0 mL Intravenous Stopped 12/01/19 4412) potassium bicarbonate (KLYTE) tablet 50 mEq (50 mEq Oral Given 12/01/19 3167) Patient felt much better after the fluids given to him. He very likely was dehydrated. No evidence of any cardiac cause. He does have mild hypokalemia, which could make her blood pressure higher, repleted. Discharged stable and improved. MDM Number of Diagnoses or Management Options Dehydration: established, improving Hypertension, poor control: new, needed workup Hypokalemia: minor Amount and/or Complexity of Data Reviewed Clinical lab tests: ordered and reviewed Review and summarize past medical records: yes Risk of Complications, Morbidity, and/or Mortality Presenting problems: moderate Diagnostic procedures: low Management options: low Patient Progress Patient progress: improved Reviewed: nursing note and vitals Interpretation: labs and ECG Clinical Impression 1. Hypertension, poor control 2. Dehydration 3. Hypokalemia Medications: Discharge Medication List as of 12/02/2019 12:25 AM Follow Up: Your doctor in [place] Schedule an appointment as soon as possible for a visit Once you are back in [place] or return to the emergency department for any other medical issues Clinical Impression: The primary encounter diagnosis was Hypertension, poor control. Diagnoses of Dehydration and Hypokalemia were also pertinent to this visit. documented in this encounter Plan of Treatment Not on file documented as of this encounter Procedures Procedure Name Priority Date/Time Associated Diagnosis Comments URINALYSIS REFLEX IF INDICATED BY ABNORMAL RESULTS STAT 12/01/2019 11:36 PM EDT UR DRUG SCREEN W/O CONFIRMATION STAT 12/01/2019 11:36 PM EDT EKG 12 LEAD STAT 12/01/2019 10:25 PM EDT EXTRA TUBES Routine 12/01/2019 9:49 PM EDT KENT TOP TUBE Routine 12/01/2019 9:49 PM EDT GOLD TOP TUBE Routine 12/01/2019 9:49 PM EDT BLUE TOP TUBE Routine 12/01/2019 9:49 PM EDT CBC WITH AUTO DIFFERENTIAL STAT 12/01/2019 9:49 PM EDT TROPONIN I (TRP I) STAT 12/01/2019 9: 49 PM EDT THYROID STIMULATING HORMONE (TSH) STAT 12/01/2019 9:49 PM EDT MAGNESIUM (MG) STAT 12/01/2019 9:49 PM EDT LIPASE STAT 12/01/2019 9:49 PM EDT CREATINE KINASE (CK) TOTAL STAT 12/01/2019 9:49 PM EDT CMP (COMPREHENSIVE METABOLIC PANEL) STAT 12/01/2019 9:49 PM EDT COMPLETE BLOOD COUNT (CBC) WITH DIFF STAT 12/01/2019 9:49 PM EDT B-TYPE NATRIURETIC PEPTIDE (BNP) STAT 12/01/2019 9:49 PM EDT documented in this encounter Results * Ur Drug Screen w/o Confirmation (12/01/2019 11:36 PM EDT) UR AMPHETAMINE/METHAM PHETAMINE NON DETECTED NON DETECTED 12/02/2019 12:22 AM EDT [facility] UR BARBITURATE NON DETECTED NON DETECTED 12/02/2019 12:22 AM EDT [facility] UR BENZODIAZEPINES NON DETECTED NON DETECTED 12/02/2019 12:22 AM EDT [facility] URINE BUPRENORPHINE NON DETECTED NON DETECTED 12/02/2019 12:22 AM EDT [facility] UR COCAINE METABOLITE NON DETECTED NON DETECTED 12/02/2019 12:22 AM EDT [facility] UR ECSTASY NON DETECTED NON DETECTED 12/02/2019 12:22 AM EDT [facility] UR HEROIN (6AM) NON DETECTED NON DETECTED 12/02/2019 12:22 AM EDT [facility] UR METHADONE NON DETECTED NON DETECTED 12/02/2019 12:22 AM EDT [facility] UR OPIATES NON DETECTED NON DETECTED 12/02/2019 12:22 AM EDT [facility] UR OXYCODONE NON DETECTED NON DETECTED 12/02/2019 12:22 AM EDT [facility] UR PHENCYCLIDINE NON DETECTED NON DETECTED 12/02/2019 12:22 AM EDT [facility] UR CANNABINOID NON DETECTED NON DETECTED 12/02/2019 12:22 AM EDT [facility] PH, URINE 7.0 4.5 - 8.5 12/02/2019 12:22 AM EDT [facility] UR TEMPERATURE 12/02/2019 12:22 AM EDT [facility] Urine Non-Phlebotomy Collection / Unknown 12/01/2019 11:36 PM EDT 12/01/2019 11:50 PM EDT Narrative [facility] - 12/02/2019 12:22 AM EDT All urine toxicology screening results are unconfirmed and are to be used for medical treatment purposes only. Zackary Christy MD URINE ORDERABLES Final Result [facility] [address] [place] [address], [place] [phone] * Urinalysis Reflex if Indicated by Abnormal Results (12/01/2019 11:36 PM EDT) SPECIFIC GRAVITY 1.015 1.003 - 1.030 12/01/2019 11:54 PM EDT [facility] URINE PH 7.0 5.0 - 9.0 12/01/2019 11:54 PM EDT [facility] WBC ESTERASE Negative Negative 12/01/2019 11:54 PM EDT [facility] NITRITE Negative Negative 12/01/2019 11:54 PM EDT [facility] PROTEIN, RANDOM URINE Negative Negative 12/01/2019 11:54 PM EDT [facility] URINE GLUCOSE, QUAL Negative Negative 12/01/2019 11:54 PM EDT [facility] URINE KETONES Negative Negative 12/01/2019 11:54 PM EDT [facility] UROBILINOGEN 1.0 0.2 , 1.0 , Normal mg/dL 12/01/2019 11:54 PM EDT [facility] URINE BILIRUBIN Negative Negative 0 11:54 PM EDT [facility] URINE BLOOD Negative Negative joanne/ul 12/01/2019 11:54 PM EDT [facility] URINALYSIS COLOR Yellow 12/01/19 20 11:54 PM EDT [facility] URINALYSIS CLARITY Clear 12/01/2019 11:54 PM EDT [facility] Urine URINE SPECIMEN / Unknown Non-Phlebotomy Collection / Unknown 12/01/2019 11:36 PM EDT 12/01/2019 11:50 PM EDT Zackary Christy MD URINE ORDERABLES Final Result Performing Organization Address City/[facility] Co de Phone Number [address] [address], * EKG 12 LEAD (12/01/2019 10:25 PM EDT) Ventricular Rate 73 BPM EXTERNAL EKG Atrial Rate 73 BPM EXTERNAL EKG P-R Interval 148 ms EXTERNAL EKG QRS Duration 96 ms EXTERNAL EKG Q-T Duration 396 ms EXTERNAL EKG QTC CALCULATION 436 ms EXTERNAL EKG P [place] 52 degrees EXTERNAL EKG R [place] 2 degrees EXTERNAL EKG T [place] 18 degrees EXTERNAL EKG 12/01/2019 10:2 5 PM EDT Impressions EXTERNAL EKG - 12/02/2019 7:24 AM EDT Normal sinus rhythm Within normal limits No previous ECGs available Confirmed by Prabhu Gentile ([id number]) on 12/02/2019 6:24:15 AM (CENTRAL TIME) Narrative Procedure Note Prabhu Gentile MD - 12/02/2019 IMPRESSION: Normal sinus rhythm Within normal limits No previous ECGs available Confirmed by Prabhu Gentile ([id number]) on 12/02/2019 6:24:15 AM (CENTRAL TIME) Zackary Christy MD IMG ECG ORDERABLES Fin al Result Performing Organization Address City/[facility]/ZIP Co de Phone Number EXTERNAL EKG * Kent Top Tube (12/01/2019 9:49 PM EDT) Blood No Phlebotomy Charged / Unknown 12/01/2019 9:49 PM EDT 12/01/2019 9:52 PM EDT [facility] Provider Manualresults CHEMISTRY ORDERABLES Final Result [address] [address], * Gold Top Tube (12/01/2019 9:49 PM EDT) Blood No Phlebotomy Charged / Unknown 12/01/2019 9:49 PM EDT 12/01/2019 9:52 PM EDT [facility] Provider Manualresults CHEMISTRY ORDERABLES Final Result Performing Organization Address City/[facility]/ZIP Co de Phone Number [address] [address], * Blue Top Tube (12/01/2019 9:49 PM EDT) Blood No Phlebotomy Charged / Unknown 12/01/2019 9:49 PM EDT 12/01/2019 9:52 PM EDT [facility] Provider Manualresults HEMATOLOGY ORDERABLES Final Result Performing Organization Address City/[facility]/ZIP Co de Phone Number [address] [address], * CBC with Auto Differential (12/01/2019 9:49 PM EDT) WBC 7.37 4.00 - 12.00 10(3)/mcL 12/01/2019 9:55 PM EDT [facility] RBC 5.26 4.40 - 5.80 10(6)/mcL 12/01/2019 9:55 PM EDT [facility] HEMOGLOBIN (HGB) 16.3 13.0 - 16.5 g/dL 12/01/2019 9:55 PM EDT [facility] HEMATOCRIT (HCT) 47.5 38.0 - 50.0 % 12/01/2019 9:55 PM EDT [facility] MCV 90.3 82.0 - 96.0 fL 12/01/2019 9:55 PM EDT [facility] MCH 31.0 26.0 - 32.0 pg 12/01/2019 9:55 PM EDT [facility] MCHC 34.3 31.0 - 36.0 g/dL 12/01/2019 9:55 PM EDT [facility] PLATELET COUNT 371 140 - 440 10(3)/mcL 12/01/2019 9:55 PM EDT [facility] RDW 13.0 11.8 - 15.5 % 12/01/2019 9:55 PM EDT [facility] MPV 8.8 8.0 - 12.6 fL 12/01/2019 9:55 PM EDT [facility] NEUTROPHILS 61.2 40.0 - 68.0 % 12/01/2019 9:55 PM EDT [facility] LYMPHOCYTES 23.9 19.0 - 49.0 % 12/01/2019 9:55 PM EDT [facility] MONOCYTES 11.1 3.0 - 13.0 % 12/01/2019 9:55 PM EDT [facility] EOSINOPHILS 3.4 0.0 - 8.0 % 12/01/2019 9:55 PM EDT [facility] BASOPHILS 0.4 0.0 - 1.0 % 12/01/2019 9:55 PM EDT [facility] ABSOLUTE NEUTROPHILS 4.51 1.40 - 5.30 10(3)/mcL 12/01/2019 9:55 PM EDT [facility] ABSOLUTE LYMPHOCYTES 1.76 0.90 - 3.30 10(3)/mcL 12/01/2019 9:55 PM EDT [facility] ABSOLUTE MONOCYTES 0.82 0.10 - 0.90 10(3)/mcL 12/01/2019 9:55 PM EDT [facility] ABSOLUTE EOSINOPHIL 0.25 0.00 - 0.50 10(3)/mcL 12/01/2019 9:55 PM EDT [facility] ABSOLUTE BASOPHILS 0.03 0.00 - 0.10 10(3)/mcL 12/01/2019 9:55 PM EDT [facility] NRBC PER 100 WBC 0 12/01/19 20 9:55 PM EDT [facility] Blood Venipuncture / Unknown 12/01/2019 9:49 PM EDT 12/01/2019 9:52 PM EDT Zackary Christy MD HEMATOLOGY ORDERABLES Final Result Performing Organization Address [facility] de Phone Number [address] [address], * B-Type Natriuretic Peptide (BNP) (12/01/2019 9:49 PM EDT) B TYPE NATRIURETIC PEPTIDE <10 <100 pg/mL 12/01/2019 10:20 PM EDT [facility] Blood Venipuncture / Unknown 12/01/2019 9:49 PM EDT 12/01/2019 9:52 PM EDT Narrative [facility] - 12/01/2019 10:20 PM EDT Left Heart Failure: (Relative to [place] [employer] Severity Criteria) NYHA I: ?50-150 pg/mL NYHA II: ?? 151-400 pg/mL NYHA III: ??401-850 pg/mL NYHA IV: ?? >850 pg/mL Right Heart Failure: COR Pulmonale: ? 200-500 pg/mL Primary Pulm Hypertension: 300-500 pg/mL Acute Pulm Embolism: ? 150-500 pg/mL Zackary Christy MD CHEMISTRY ORDERABLES F inal Result Performing Organization Address [facility]/ZIP Co de Phone Number [address] [address], [place] [phone] * Creatine Kinase (CK) Total (12/01/2019 9:49 PM EDT) CK (CPK) 95 30 - 200 U/L 12/01/2019 10:23 PM EDT [facility] Blood Venipuncture / Unknown 12/01/2019 9:49 PM EDT 12/01/2019 10:07 PM EDT us Zackary Christy MD HEMATOLOGY ORDERABLES Final Result Performing Organization Address [facility] Co de Phone Number [address] [address], * Troponin I (Trp I) (12/01/2019 9:49 PM EDT) TROPONIN I <0.010 <0.028 ng/mL 12/01/2019 10:20 PM EDT [facility] Blood Venipuncture / Unknown 12/01/2019 9:49 PM EDT 12/01/2019 9:52 PM EDT Narrative [facility] - 12/01/2019 10:20 PM EDT Recommend serial sampling to detect the temporal rise and fall of troponin levels indicative of myocardial injury. us Zackary Christy MD CHEMISTRY ORDERABLES F inal Result Performing Organization Address [facility] [place] [address], * Thyroid Stimulating Hormone (TSH) (12/01/2019 9:49 PM EDT) TSH 1.424 0.300 - 5.000 mIU/L 12/01/2019 10:54 PM EDT [facility] Blood Venipuncture / Unknown 12/01/2019 9:49 PM EDT 12/01/2019 10:07 PM EDT us Zackary Christy MD CHEMISTRY ORDERABLES F inal Result Performing Organization Address City/[facility] Co de Phone Number [address] [address], * Magnesium (Mg) (12/01/2019 9:49 PM EDT) MAGNESIUM 2.2 1.6 - 2.6 mg/dL 12/01/2019 10:23 PM EDT [facility] Blood Venipuncture / Unknown 12/01/2019 9:49 PM EDT 12/01/2019 10:07 PM EDT Zackary Christy MD CHEMISTRY ORDERABLES F inal Result Performing Organization Address City/[facility]/[place] [address], [place] [phone] * Lipase (12/01/2019 9:49 PM EDT) LIPASE 44 8 - 78 U/L 12/01/2019 10:23 PM EDT [facility] Blood Venipuncture / Unknown 12/01/2019 9:49 PM EDT 12/01/2019 10:07 PM EDT Zackary Christy MD CHEMISTRY ORDERABLES F inal Result Performing Organization Address [facility] [place] [address], [place] [phone] * (ABNORMAL) CMP (Comprehensive Metabolic Panel) (12/01/2019 9:49 PM EDT) SODIUM 143 136 - 145 mmol/L 12/01/2019 10:23 PM EDT [facility] POTASSIUM 3.4(L) 3.5 - 5.1 mmol/L 12/01/2019 10:23 PM EDT [facility] CHLORIDE 107 98 - 107 mmol/L 12/01/2019 10:23 PM EDT [facility] CO2, VENOUS 24 22 - 30 mmol/L 12/01/2019 10:23 PM EDT [facility] ANION GAP 12.0 <18.0 mmol/L 12/01/2019 10:23 PM EDT [facility] GLUCOSE 100(H) 70 - 99 mg/dL 12/01/2019 10:23 PM EDT [facility] BUN 15 8 - 26 mg/dL 12/01/2019 10:23 PM EDT [facility] CREATININE, BLOOD 1.11 0.70 - 1.30 mg/dL 12/01/2019 10:23 PM EDT [facility] BUN/CREATININE RATIO 14 12 - 20 ratio 12/01/2019 10:23 PM EDT [facility] TOTAL PROTEIN 8.2 6.3 - 8.2 g/dL 12/01/2019 10:23 PM EDT [facility] ALBUMIN 4.6 3.5 - 5.0 g/dL 12/01/2019 10:23 PM EDT [facility] A/G RATIO 1.3 1.0 - 2.2 12/01/2019 10:23 PM EDT [facility] CALCIUM 9.4 9.1 - 10.5 mg/dL 12/01/2019 10:23 PM EDT [facility] T BILI 0.6 0.2 - 1.2 mg/dL 12/01/2019 10:23 PM EDT [facility] SGOT (AST) 16 5 - 34 U/L 12/01/2019 10:23 PM EDT [facility] SGPT (ALT) 21 0 - 55 U/L 12/01/2019 10:23 PM EDT [facility] ALKALINE PHOSPHATASE 70 40 - 150 U/L 12/01/2019 10:23 PM EDT [facility] GFR, EST. NONAFRICAN >60 >=60 12/01/2019 10:23 PM EDT [facility] GFR, EST. >60 >=60 12/01/2019 10:23 PM EDT [facility] Comment: Creatinine Clearance is the preferred criteria for selecting drug dose adjustments in renally impaired patients. ??The GFR is provided as additional pertinent clinical information. GFR is reported in mL/min/1.73 sq m. Blood Venipuncture / Unknown 12/01/2019 9:49 PM EDT 12/01/2019 10:07 PM EDT Zackary Christy MD CHEMISTRY ORDERABLES F inal Result [facility] [id number] [place] [address], [place] [phone] documented in this encounter Visit Diagnoses Diagnosis Hypertension, poor control- Primary Unspecified essential hypertension Dehydration Hypokalemia Hypopotassemia documented in this encounter Administered Medications Inactive Administered Medications - up to 3 most recent administrations Medication Order MAR Action Action Date Dose Rate Site 0.9 % sodium chloride solution at 999 mL/hr, Intravenous, ONCE, 1 dose, On Fri12/01/19 at 2300 New Bag 12/01/2019 10:44 PM EDT 1,000 mL 999 mL/hr potassium bicarbonate (KLYTE) tablet 50 mEq 50 mEq, Oral, ONCE, 1 dose, On Fri12/01/19 at 2330, Do not crush. Given 12/01/2019 11:23 PM EDT 50 mEq documented in this encounter Active and Recently Administered Medications Times are shown in EDT. Scheduled Medication Order 11/30/2019 12/01/2019 12/02/2019 0.9 % sodium chloride solution (COMPLETED) at 999 mL/hr, Intravenous, ONCE, 1 dose, On Fri12/01/19 at 2300 2244 (New Bag - Provider: Damian Bowie RN)2344 (Stopped - Provider: Danika Bowie RN) potassium bicarbonate (KLYTE) tablet 50 mEq (COMPLETED) 50 mEq, Oral, ONCE, 1 dose, On Fri12/01/19 at 2330, Do not crush. 2323 (Given - Provider: Mony Bowie RN) documented in this encounter Care Teams Manager Discovery Relationship Specialty Start Date End Date Provider, None [place] PCP - General 12/01/19 documented as of this encounter
--- OUTSIDE RECORDS SUMMARY | 2024-05-25 15:13 | XMS_ITS | Encounter Summary ---
Author Organization [facility] Address [address] [place] [address] Care Team Providers Care Director Packaging Name Role Phone Unavailable Primary Care Provider Unavailabl e Encounter Details Date Type Department Care Team (Latest Contact Info) Description 04/22/2006 - 05/08/2006 Hospital Encounter [facility] Department [address] [place] [address] Provider, MD Christine [address] [place] [address] Discharge Disposition: Discharge Home Social History Tobacco Use Types Packs/Day Years Used Date Smoking Tobacco: Never Assessed Sex and Gender Information Value Date Recorded Sex Assigned at Not on file Legal Sex Male 3:17 AM CALL PERSON Gender Identity Not on file Sexual Orientation Not on file documented as of this encounter Plan of Treatment Not on file documented as of this encounter Visit Diagnoses Not on filedocumented in this encounter
--- OUTSIDE RECORDS SUMMARY | 2024-05-25 15:13 | XMS_ITS | Encounter Summary ---
Author Organization [facility] Address [address] [place] [address] Care Team Providers Care Validation Intern Name Role Phone Unavailable Primary Care Provider Unavailabl e Encounter Details Date Type Department Care Team (Late st Contact Info) Description 09/12/2001 2:00 AM COOK SHIP Emergency [facility] Emergency Department [address] [place] [phone] (Del)Physician, Minal Fontaine MD Discharge Disposition: Discharge Home Social History Tobacco Use Types Packs/Day Years Used Date Smoking Tobacco: Never Assessed Sex and Gender Information Value Date Recorded Sex Assigned at Not on file Legal Sex Male 3:17 AM COOK SHIP Gender Identity Not on file Sexual Orientation Not on file documented as of this encounter Plan of Treatment Not on file documented as of this encounter Visit Diagnoses Not on filedocumented in this encounter
--- OUTSIDE RECORDS SUMMARY | 2024-05-25 15:13 | XMS_ITS | CCD ---
Author Name Interface, [id number] lity Address [address] [place] [address] [facility], [facility] Address [address] [place] [address] Care Team Providers Care Benefits Assistant Name Role Phone Interface, [id number] Unavailable Unavail able Reason for Visit Social History Date Name Value Sex Male
--- OUTSIDE RECORDS SUMMARY | 2024-05-25 15:13 | XMS_ITS | Encounter Summary ---
Author Organization [facility] Address [address] [place] [address] Care Team Providers Care Cigar Tobacco Rehandler Name Role Phone Unavailable Primary Care Provider Unavailabl e Encounter Details Date Type Department Care Team (Latest Contact Info) Description 05/09/2006 - 05/20/2006 Hospital Encounter [facility] Department [address] [place] [address] Provider, MD Christine [address] [place] [address] Discharge Disposition: Discharge Home Social History Tobacco Use Types Packs/Day Years Used Date Smoking Tobacco: Never Assessed Sex and Gender Information Value Date Recorded Sex Assigned at Not on file 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
--- OUTSIDE RECORDS SUMMARY | 2024-05-25 15:13 | XMS_ITS | Clinical Summary ---
Author Organization [facility] Address [address] [place] [address] Care Team Providers Care Strip Stamp Straightener Name Role Phone Asked, No Pcp Primary Care Provider Unavailabl e Allergies No known active allergies Medications metoprolol succinate XL (TOPROL-XL) 50 mg 24 hr tablet 50 mg = 1 tab, PO, Daily, # 90 tab, 0 Refill(s), Pharmacy: [facility], 180.34, cm, 11/15/19 9:14:00 CDT, Height, 77.727, kg, 11/15/19 9:14:00 CDT, Weight 02/07/2020 Active amLODIPine (NORVASC) 10 mg tablet 10 mg = 1 tab, PO, Daily, # 90 tab, 0 Refill(s), called to pharmacy 04/20/2018 Active Social History Tobacco Use Types Packs/Day Years Used Date Smoking Tobacco: Never Smokeless Tobacco: Never Alcohol Use Standard Drinks/Week Comments Yes 0 (1 standard drink = 0.6 oz pur e alcohol) social PHQ-2 Answer Date Recorded PHQ-9 Total Score 0 07/15/2021 Sex and Gender Information Value Date Recorded Sex Assigned at Not on file Legal Sex Male 3:17 AM LAN ANALYST Gender Identity Not on file Sexual Orientation Not on file Last Filed Vital Signs Vital Sign Reading Time Taken Comments Blood Pressure 152/100 07/15/2021 2:47 AM LAN ANALYST Pulse 80 07/15/2021 2:47 AM LAN ANALYST Temperature 37.1 ??C (98.8 ??F) 07/15/2021 1:11 AM CS T Respiratory Rate 16 07/15/2021 2:47 AM LAN ANALYST Oxygen Saturation 100% 07/15/2021 2:47 AM LAN ANALYST Inhaled Oxygen Concentration - - Weight 74.8 kg (165 lb) 07/15/2021 1:12 AM LAN ANALYST Height 180.3 cm (5' 11 ) 07/15/2021 1:12 AM LAN ANALYST Body Mass Index 23.01 07/15/2021 1:12 AM LAN ANALYST Plan of Treatment Health Maintenance Due Date Last Done Comments FLEXIBLE SIGMOIDOSCOPY 1966 FOBT 1966 STOOL DNA (COLOGUARD) 1966 HEPATITIS C SCREENING 1984 COLONOSCOPY SCREENING 09/30/2011 COLORECTAL CANCER SCREENING 09/30/2011 SHINGLES VACCINES (1 of 2) 2016 COVID-19 VACCINE (2023-2 5 season) 2024 INFLUENZA VACCINE (#1) 2024 Pneumococcal Vaccine: Pediat rics (0 to 5 Years) and At-Risk Patients (6 to 64 Years) Aged Out No longer eligible b ased on patient's age to complete this topic Care Teams Strip Stamp Straightener Relationship Specialty Start Date End Date Asked, No Pcp [id number] PCP - General 07/15/21
--- OUTSIDE RECORDS SUMMARY | 2024-05-25 16:29 | XMS_ITS | Encounter Summary ---
Author Organization [facility] Address [address] [place] [address] Care Team Providers Care Veterinary Nurse Name Role Phone Asked, No Pcp Primary Care Provider Unavailabl e Reason for Visit * Reason Comments Toe Pain * Auth/Cert Specialty Diagnoses / Procedures Referred By Contac t Referred To Contact Referral ID Status Reason Start Date Expiration Date Visits Re quested Visits Authorized [id number] 1 1 Encounter Details Date Type Department Care Team (Late st Contact Info) Description 07/15/2021 1:35 AM FLY MAKER - 07/15/2021 2:55 AM FLY MAKER Emergency [facility] Emergency Department [address] [place] [phone] Danielle Baird MD [address] [facility] [address] [place], [place] [phone] Closed displaced fracture of phalanx of lesser [...] on file Legal Sex Male 3:17 AM FLY MAKER Gender Identity Not on file Sexual Orientation Not on file COVID-19 Exposure Response Date Recorded In the last month, have you been in contact with someone who was confirmed or suspected to have Coronavirus / COVID-19? No / Unsure 07/15/2021 12:49 AM FLY MAKER documented as of this encounter Last Filed Vital Signs Vital Sign Reading Time Taken Comments Blood Pressure 152/100 07/15/2021 2:47 AM FLY MAKER Pulse 80 07/15/2021 2:47 AM FLY MAKER Temperature 37.1 ??C (98.8 ??F) 07/15/2021 1:11 AM CS T Respiratory Rate 16 07/15/2021 2:47 AM FLY MAKER Oxygen Saturation 100% 07/15/2021 2:47 AM FLY MAKER Inhaled Oxygen Concentration - - Weight 74.8 kg (165 lb) 07/15/2021 1:12 AM FLY MAKER Height 180.3 cm (5' 11 ) 07/15/2021 1:12 AM FLY MAKER Body Mass Index 23.01 07/15/2021 1:12 AM FLY MAKER documented in this encounter Discharge Instructions * Attachments The following attachments cannot be sent through Care Everywhere. * Fracture, Toe, Closed (British) documented in this encounter Medications at Time of Discharge amLODIPine (NORVASC) 10 mg tablet 10 mg = 1 tab, PO, Daily, # 90 tab, 0 Refill(s), called to pharmacy 04/20/2018 metoprolol succinate XL (TOPROL-XL) 50 mg 24 hr tablet 50 mg = 1 tab, PO, Daily, # 90 tab, 0 Refill(s), Pharmacy: [facility] 285, 180.34, cm, 11/15/19 9:14:00 [...] toe of right foot. No gross deformity. MAKER * Danielle Baird MD - 07/15/2021 12:44 AM CSTAssociated Order(s): Ortho Injury - Lower Images from the original note were not included. Emergency Department Provider Note Location: [facility] Patient ID: Thomas Thorpe is a 55 [...] Daily, # 90 tab, 0 Refill(s), Pharmacy: [facility] 285, 180.34, cm, 11/15/19 9:14:00 CDT, [...] Recommend podiatry f/u. 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 Recommend hard sole shoe, no pain [...] 07/15/21 0046 Danielle Baird MD 07/15/21 0233 MAKER MAKER documented in this encounter Plan of Treatment Not on file documented as of this encounter Procedures Procedure Name Priority Date/Time Associated Diagnosis Comments XR TOE 2+ VW RIGHT STAT 07/15/2021 1: 10 AM FLY MAKER NC OPEN TX DISTAL PHALANGEAL FRACTURE EACH Routine 07/15/2021 12:44 AM FLY MAKER documented in this encounter Results * XR Toe 2+ Vw Right (07/15/2021 1:10 AM FLY MAKER) Anatomical Region Laterality Modality Lower Extremities, Toes Right Computed Radiography 07/15/2021 2:09 AM FLY MAKER Narrative 07/15/2021 2:11 AM FLY MAKER EXAMINATION: ??XR TOE 2 ??VW RIGHT CLINICAL [...] DIAGNOSTIC IMAGIN G ORDERABLES Final Result * NC OPEN TX DISTAL PHALANGEAL FRACTURE EACH (07/15/2021 12:44 AM FLY MAKER) Narrative Danielle Baird MD - 07/15/2021 12:44 AM FLY MAKER Danielle Baird MD ? 07/15/2021 ??2:33 AM [...] Primary documented in this encounter Care Teams Veterinary Nurse Relationship Specialty Start Date End Date Asked, No Pcp [id number] PCP - General 07/15/21 documented as of this encounter
--- OUTSIDE RECORDS SUMMARY | 2024-05-25 16:29 | XMS_ITS | Encounter Summary ---
Author Organization [facility] Address [address] [place] [address] Care Team Providers Care Breastfeeding Program Coordinator Name Role Phone Unavailable Primary Care Provider Unavailabl e Encounter Details Date Type Department Care Team (Late st Contact Info) Description 09/12/2001 2:00 AM ASSISTANT ASSOCIATE PROFESSOR Emergency [facility] Emergency Department [address] [place] [phone] (Del)Physician, Minal Fontaine MD Discharge Disposition: Discharge Home Social History Tobacco Use Types Packs/Day Years Used Date Smoking Tobacco: Never Assessed Sex and Gender Information Value Date Recorded Sex Assigned at Not on file Legal Sex Male 3:17 AM ASSISTANT ASSOCIATE PROFESSOR Gender Identity Not on file Sexual Orientation Not on file documented as of this encounter Plan of Treatment Not on file documented as of this encounter Visit Diagnoses Not on filedocumented in this encounter
--- OUTSIDE RECORDS SUMMARY | 2024-05-25 16:29 | XMS_ITS | Encounter Summary ---
Author Organization [facility] Address [address] [place] [address] Care Team Providers Care Engine Cowling Installer Name Role Phone Unavailable Primary Care Provider Unavailabl e Encounter Details Date Type Department Care Team (Latest Contact Info) Description 04/22/2006 - 05/08/2006 Hospital Encounter [facility] Department [address] [place] [address] Provider, MD Christine [address] [place] [address] Discharge Disposition: Discharge Home Social History Tobacco Use Types Packs/Day Years Used Date Smoking Tobacco: Never Assessed Sex and Gender Information Value Date Recorded Sex Assigned at Not on file Legal Sex Male 3:17 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
--- OUTSIDE RECORDS SUMMARY | 2024-05-25 16:29 | XMS_ITS | Encounter Summary ---
Author Organization [facility] Address [address] [place] [address] Care Team Providers Care Shop Lead Name Role Phone Asked, No Pcp Primary [...] on file Legal Sex Male 3:17 AM WRAPPER HANDS SPRAYER Gender Identity Not on file Sexual Orientation Not on file COVID-19 Exposure Response Date Recorded In the last month, have you been in contact with someone who was confirmed or suspected to have Coronavirus / COVID-19? No / Unsure 07/15/2021 12:49 AM WRAPPER HANDS SPRAYER documented as of this encounter Plan of Treatment Not on file documented as of this encounter Visit Diagnoses Not on filedocumented in this encounter Care Teams Shop Lead Relationship Specialty Start Date End Date Asked, No Pcp [id number] PCP - General 07/15/21 documented as of this encounter
--- OUTSIDE RECORDS SUMMARY | 2024-05-25 16:29 | XMS_ITS | Encounter Summary ---
Author Organization [facility] Address [address] [place] [address] Care Team Providers Care Fiber Designer Name Role Phone Unavailable Primary Care Provider Unavailabl e Encounter Details Date Type Department Care Team (Latest Contact Info) Description 05/09/2006 - 05/20/2006 Hospital Encounter [facility] Department [address] [place] [address] Provider, MD Christine [address] [place] [address] Discharge Disposition: Discharge Home Social History Tobacco Use Types Packs/Day Years Used Date Smoking Tobacco: Never Assessed Sex and Gender Information Value Date Recorded Sex Assigned at Not on file Legal Sex Male 3:17 AM 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
--- OUTSIDE RECORDS SUMMARY | 2024-05-25 16:29 | XMS_ITS | CCD ---
Author Name Interface, [id number] lity Address [address] [place] [id number] [facility] Address [address] [facility] [address] [place] [address] Care Team Providers Care Line Walker Name Role Phone Interface, [id number] Unavailable Unavail able Reason for Visit Social History Date Name Value Sex Male
--- OUTSIDE RECORDS SUMMARY | 2024-05-25 16:29 | XMS_ITS | Clinical Summary ---
Author Organization [facility] Address [address] [place] [address] Care Team Providers Care Block Sorter Name Role Phone Asked, No Pcp Primary Care Provider Unavailabl e Allergies No known active allergies Medications metoprolol succinate XL (TOPROL-XL) 50 mg 24 hr tablet 50 mg = 1 tab, PO, Daily, # 90 tab, 0 Refill(s), Pharmacy: [facility], 180.34, cm, 11/15/19 9:14:00 CDT, [...] on file Legal Sex Male 3:17 AM REFLESHER Gender Identity Not on file Sexual Orientation Not on file Last Filed Vital Signs Vital Sign Reading Time Taken Comments Blood Pressure 152/100 07/15/2021 2:47 AM REFLESHER Pulse 80 07/15/2021 2:47 AM REFLESHER Temperature 37.1 ??C (98.8 ??F) 07/15/2021 1:11 AM CS T Respiratory Rate 16 07/15/2021 2:47 AM REFLESHER Oxygen Saturation 100% 07/15/2021 2:47 AM REFLESHER Inhaled Oxygen Concentration - - Weight 74.8 kg (165 lb) 07/15/2021 1:12 AM REFLESHER Height 180.3 cm (5' 11 ) 07/15/2021 1:12 AM REFLESHER Body Mass Index 23.01 07/15/2021 1:12 AM REFLESHER Plan of Treatment Health Maintenance Due Date [...] age to complete this topic Care Teams Block Sorter Relationship Specialty Start Date End Date Asked, No Pcp [phone] PCP - General 07/15/21
--- OUTSIDE RECORDS SUMMARY | 2024-05-25 16:30 | XMS_ITS | Encounter Summary ---
Author Organization [facility] Care Team Providers Care Hollock Maker Name Role Phone Provider, None Primary Care [...] on filedocumented in this encounter Care Teams Hollock Maker Relationship Specialty Start Date End Date Provider, None [place] PCP - General 12/01/19 documented as of this encounter
--- OUTSIDE RECORDS SUMMARY | 2024-05-25 16:30 | XMS_ITS | Clinical Summary ---
Author Organization [facility] Address [address] [place] [address] Phone Care Team Providers Care Welfare Eligibility Worker Name Role Phone Provider, None Primary Care [...] of Treatment Not on file Care Teams Welfare Eligibility Worker Relationship Specialty Start Date End Date Provider, None [place] PCP - General 12/01/19
--- OUTSIDE RECORDS SUMMARY | 2024-05-25 16:30 | XMS_ITS | CCD ---
Author Name Interface, [id number] lity Address [address] [place] [address] [facility], [facility] Address [address] [place] [address] Care Team Providers Care Upholsterer Assembly Line Name Role Phone Interface, [id number] Unavailable Unavail able Reason for Visit Social History Date Name Value Sex Male
--- OUTSIDE RECORDS SUMMARY | 2024-05-25 16:30 | XMS_ITS | Encounter Summary ---
Author Organization [facility] Address [address] [place] [address] Phone Care Team Providers Care Psychological Aide Name Role Phone Provider, None Primary Care Provider Unavailabl e Reason for Visit * Reason Comments High Blood Pressure Encounter Details Date Type Department Care Team (Late st Contact Info) Description 12/01/2019 9:36 PM EDT - 12/02/2019 12:35 AM EDT Emergency [facility] Emergency [address] [place] [id number] Zackary Farrell MD [address] [place] [address] Dehydration Discharge Disposition: Discharged to home or [...] through Care Everywhere. * Hypokalemia, Discharge Instructions (Trinidadian) * Hypokalemia (Trinidadian) * High Blood Pressure, Established, Out of Control (Trinidadian) * Hypertension - VIDEO (Trinidadian) documented in this encounter Medications at Time [...] past week. Tonight diastolic 102. Patient saw saddle and side wire stitcher on the 9 and pressure was elevated then and was instructed to monitor. Also c/o dizziness, weakness, shaking and loss of smell this evening. Patient here working. Patient is from [place]. * Zackary Farrell MD - 12/01/2019 9:40 PM EDT Chief Complaint Patient presents with ??? High Blood Pressure High Blood Pressure Patient here with c/o blood pressure increasing the past week. Tonight diastolic 102. Patient saw saddle and side wire stitcher on the 9 and pressure was elevated then and was instructed to monitor. Also c/o dizziness, weakness, shaking and loss of smell this evening. Patient here working. Patient is from [place]. The history is provided by the patient. [...] urine than usual. He had seen his saddle and side wire stitcher in [place] and blood pressure was higher at that [...] file Gets together: Not on file Attends shinto service: Not on file Active member of [...] chloride solution (0 mL Intravenous Stopped 12/01/19 8781) potassium bicarbonate (KLYTE) tablet 50 mEq (50 mEq Oral Given 12/01/19 0419) Patient felt much better after the fluids [...] 12:25 AM Follow Up: Your doctor in [place] Schedule an appointment as soon as possible for a visit Once you are back in [place] or return to the emergency department for [...] NON DETECTED 12/02/2019 12:22 AM EDT [facility] UR BARBITURATE NON DETECTED NON DETECTED 12/02/2019 12:22 AM EDT [facility] UR BENZODIAZEPINES NON DETECTED NON DETECTED 12/02/2019 12:22 AM EDT [facility] URINE BUPRENORPHINE NON DETECTED NON DETECTED 12/02/2019 12:22 AM EDT [facility] UR COCAINE METABOLITE NON DETECTED NON DETECTED 12/02/2019 12:22 AM EDT [facility] UR ECSTASY NON DETECTED NON DETECTED 12/02/2019 12:22 AM EDT [facility] UR HEROIN (6AM) NON DETECTED NON DETECTED 12/02/2019 12:22 AM EDT [facility] UR METHADONE NON DETECTED NON DETECTED 12/02/2019 12:22 AM EDT [facility] UR OPIATES NON DETECTED NON DETECTED 12/02/2019 12:22 AM EDT [facility] UR OXYCODONE NON DETECTED NON DETECTED 12/02/2019 12:22 AM EDT [facility] UR PHENCYCLIDINE NON DETECTED NON DETECTED 12/02/2019 12:22 AM EDT [facility] UR CANNABINOID NON DETECTED NON DETECTED 12/02/2019 12:22 AM EDT [facility] PH, URINE 7.0 4.5 - 8.5 12/02/2019 12:22 AM EDT [facility] UR TEMPERATURE 12/02/2019 12:22 AM EDT [facility] Urine Non-Phlebotomy Collection / Unknown 12/01/2019 11:36 PM EDT 12/01/2019 11:50 PM EDT Narrative [facility] - 12/02/2019 12:22 AM EDT All urine toxicology screening results are unconfirmed and are to be used for medical treatment purposes only. Zackary Christy MD URINE ORDERABLES Final Result [facility] [address] [place] [address], [place] [phone] * Urinalysis Reflex if Indicated by Abnormal Results (12/01/2019 11:36 PM EDT) SPECIFIC GRAVITY 1.015 1.003 - 1.030 12/01/2019 11:54 PM EDT [facility] URINE PH 7.0 5.0 - 9.0 12/01/2019 11:54 PM EDT [facility] WBC ESTERASE Negative Negative 12/01/2019 11:54 PM EDT [facility] NITRITE Negative Negative 12/01/2019 11:54 PM EDT [facility] PROTEIN, RANDOM URINE Negative Negative 12/01/2019 11:54 PM EDT [facility] URINE GLUCOSE, QUAL Negative Negative 12/01/2019 11:54 PM EDT [facility] URINE KETONES Negative Negative 12/01/2019 11:54 PM EDT [facility] UROBILINOGEN 1.0 0.2 , 1.0 , Normal mg/dL 12/01/2019 11:54 PM EDT [facility] URINE BILIRUBIN Negative Negative 0 11:54 PM EDT [facility] URINE BLOOD Negative Negative joanne/ul 12/01/2019 11:54 PM EDT [facility] URINALYSIS COLOR Yellow 12/01/19 20 11:54 PM EDT [facility] URINALYSIS CLARITY Clear 12/01/2019 11:54 PM EDT [facility] Urine URINE SPECIMEN / Unknown Non-Phlebotomy Collection / Unknown 12/01/2019 11:36 PM EDT 12/01/2019 11:50 PM EDT Zackary Christy MD URINE ORDERABLES Final Result Performing Organization Address City/[facility] Co de Phone Number [address] [address], * EKG 12 LEAD (12/01/2019 10:25 PM EDT) Ventricular Rate 73 BPM EXTERNAL EKG Atrial Rate 73 BPM EXTERNAL EKG P-R Interval 148 ms EXTERNAL EKG QRS Duration 96 ms EXTERNAL EKG Q-T Duration 396 ms EXTERNAL EKG QTC CALCULATION 436 ms EXTERNAL EKG P Carson 52 degrees EXTERNAL EKG R Carson 2 degrees EXTERNAL EKG T Carson 18 degrees EXTERNAL EKG 12/01/2019 10:2 5 [...] Fin al Result Performing Organization Address City/[facility]/ZIP Co de Phone Number EXTERNAL EKG * Kent Top Tube (12/01/2019 9:49 PM EDT) Blood No Phlebotomy Charged / Unknown 12/01/2019 9:49 PM EDT 12/01/2019 9:52 PM EDT [facility] Provider Manualresults CHEMISTRY ORDERABLES Final Result [address] [address], * Gold Top Tube (12/01/2019 9:49 PM EDT) Blood No Phlebotomy Charged / Unknown 12/01/2019 9:49 PM EDT 12/01/2019 9:52 PM EDT [facility] Provider Manualresults CHEMISTRY ORDERABLES Final Result Performing Organization Address City/[facility]/ZIP Co de Phone Number [address] [address], * Blue Top Tube (12/01/2019 9:49 PM EDT) Blood No Phlebotomy Charged / Unknown 12/01/2019 9:49 PM EDT 12/01/2019 9:52 PM EDT [facility] Provider Manualresults HEMATOLOGY ORDERABLES Final Result Performing Organization Address City/[facility]/ZIP Co de Phone Number [address] [address], * CBC with Auto Differential (12/01/2019 9:49 PM EDT) WBC 7.37 4.00 - 12.00 10(3)/mcL 12/01/2019 9:55 PM EDT [facility] RBC 5.26 4.40 - 5.80 10(6)/mcL 12/01/2019 9:55 PM EDT [facility] HEMOGLOBIN (HGB) 16.3 13.0 - 16.5 g/dL 12/01/2019 9:55 PM EDT [facility] HEMATOCRIT (HCT) 47.5 38.0 - 50.0 % 12/01/2019 9:55 PM EDT [facility] MCV 90.3 82.0 - 96.0 fL 12/01/2019 9:55 PM EDT [facility] MCH 31.0 26.0 - 32.0 pg 12/01/2019 9:55 PM EDT [facility] MCHC 34.3 31.0 - 36.0 g/dL 12/01/2019 9:55 PM EDT [facility] PLATELET COUNT 371 140 - 440 10(3)/mcL 12/01/2019 9:55 PM EDT [facility] RDW 13.0 11.8 - 15.5 % 12/01/2019 9:55 PM EDT [facility] MPV 8.8 8.0 - 12.6 fL 12/01/2019 9:55 PM EDT [facility] NEUTROPHILS 61.2 40.0 - 68.0 % 12/01/2019 9:55 PM EDT [facility] LYMPHOCYTES 23.9 19.0 - 49.0 % 12/01/2019 9:55 PM EDT [facility] MONOCYTES 11.1 3.0 - 13.0 % 12/01/2019 9:55 PM EDT [facility] EOSINOPHILS 3.4 0.0 - 8.0 % 12/01/2019 9:55 PM EDT [facility] BASOPHILS 0.4 0.0 - 1.0 % 12/01/2019 9:55 PM EDT [facility] ABSOLUTE NEUTROPHILS 4.51 1.40 - 5.30 10(3)/mcL 12/01/2019 9:55 PM EDT [facility] ABSOLUTE LYMPHOCYTES 1.76 0.90 - 3.30 10(3)/mcL 12/01/2019 9:55 PM EDT [facility] ABSOLUTE MONOCYTES 0.82 0.10 - 0.90 10(3)/mcL 12/01/2019 9:55 PM EDT [facility] ABSOLUTE EOSINOPHIL 0.25 0.00 - 0.50 10(3)/mcL 12/01/2019 9:55 PM EDT [facility] ABSOLUTE BASOPHILS 0.03 0.00 - 0.10 10(3)/mcL 12/01/2019 9:55 PM EDT [facility] NRBC PER 100 WBC 0 12/01/19 20 9:55 PM EDT [facility] Blood Venipuncture / Unknown 12/01/2019 9:49 PM EDT 12/01/2019 9:52 PM EDT Zackary Christy MD HEMATOLOGY ORDERABLES Final Result Performing Organization Address [facility] de Phone Number [address] [address], * B-Type Natriuretic Peptide (BNP) (12/01/2019 9:49 PM EDT) B TYPE NATRIURETIC PEPTIDE <10 <100 pg/mL 12/01/2019 10:20 PM EDT [facility] Blood Venipuncture / Unknown 12/01/2019 9:49 PM EDT 12/01/2019 9:52 PM EDT Narrative [facility] - 12/01/2019 10:20 PM EDT Left Heart Failure: (Relative to [place] [employer] Severity Criteria) NYHA I: ?50-150 pg/mL NYHA II: ?? 151-400 pg/mL NYHA III: ??401-850 pg/mL NYHA IV: ?? >850 pg/mL Right Heart Failure: COR Pulmonale: ? 200-500 pg/mL Primary Pulm Hypertension: 300-500 pg/mL Acute Pulm Embolism: ? 150-500 pg/mL Zackary Christy MD CHEMISTRY ORDERABLES F inal Result Performing Organization Address [facility]/ZIP Co de Phone Number [address] [address], [place] [phone] * Creatine Kinase (CK) Total (12/01/2019 9:49 PM EDT) CK (CPK) 95 30 - 200 U/L 12/01/2019 10:23 PM EDT [facility] Blood Venipuncture / Unknown 12/01/2019 9:49 PM EDT 12/01/2019 10:07 PM EDT us Zackary Christy MD HEMATOLOGY ORDERABLES Final Result Performing Organization Address [facility] Co de Phone Number [address] [address], * Troponin I (Trp I) (12/01/2019 9:49 PM EDT) TROPONIN I <0.010 <0.028 ng/mL 12/01/2019 10:20 PM EDT [facility] Blood Venipuncture / Unknown 12/01/2019 9:49 PM EDT 12/01/2019 9:52 PM EDT Narrative [facility] - 12/01/2019 10:20 PM EDT Recommend serial sampling to detect the temporal rise and fall of troponin levels indicative of myocardial injury. us Zackary Christy MD CHEMISTRY ORDERABLES F inal Result Performing Organization Address [facility] [place] [address], * Thyroid Stimulating Hormone (TSH) (12/01/2019 9:49 PM EDT) TSH 1.424 0.300 - 5.000 mIU/L 12/01/2019 10:54 PM EDT [facility] Blood Venipuncture / Unknown 12/01/2019 9:49 PM EDT 12/01/2019 10:07 PM EDT us Zackary Christy MD CHEMISTRY ORDERABLES F inal Result Performing Organization Address City/[facility] Co de Phone Number [address] [address], * Magnesium (Mg) (12/01/2019 9:49 PM EDT) MAGNESIUM 2.2 1.6 - 2.6 mg/dL 12/01/2019 10:23 PM EDT [facility] Blood Venipuncture / Unknown 12/01/2019 9:49 PM EDT 12/01/2019 10:07 PM EDT Zackary Christy MD CHEMISTRY ORDERABLES F inal Result Performing Organization Address City/[facility]/[place] [address], [place] [phone] * Lipase (12/01/2019 9:49 PM EDT) LIPASE 44 8 - 78 U/L 12/01/2019 10:23 PM EDT [facility] Blood Venipuncture / Unknown 12/01/2019 9:49 PM EDT 12/01/2019 10:07 PM EDT Zackary Christy MD CHEMISTRY ORDERABLES F inal Result Performing Organization Address [facility] [place] [address], [place] [phone] * (ABNORMAL) CMP (Comprehensive Metabolic Panel) (12/01/2019 9:49 PM EDT) SODIUM 143 136 - 145 mmol/L 12/01/2019 10:23 PM EDT [facility] POTASSIUM 3.4(L) 3.5 - 5.1 mmol/L 12/01/2019 10:23 PM EDT [facility] CHLORIDE 107 98 - 107 mmol/L 12/01/2019 10:23 PM EDT [facility] CO2, VENOUS 24 22 - 30 mmol/L 12/01/2019 10:23 PM EDT [facility] ANION GAP 12.0 <18.0 mmol/L 12/01/2019 10:23 PM EDT [facility] GLUCOSE 100(H) 70 - 99 mg/dL 12/01/2019 10:23 PM EDT [facility] BUN 15 8 - 26 mg/dL 12/01/2019 10:23 PM EDT [facility] CREATININE, BLOOD 1.11 0.70 - 1.30 mg/dL 12/01/2019 10:23 PM EDT [facility] BUN/CREATININE RATIO 14 12 - 20 ratio 12/01/2019 10:23 PM EDT [facility] TOTAL PROTEIN 8.2 6.3 - 8.2 g/dL 12/01/2019 10:23 PM EDT [facility] ALBUMIN 4.6 3.5 - 5.0 g/dL 12/01/2019 10:23 PM EDT [facility] A/G RATIO 1.3 1.0 - 2.2 12/01/2019 10:23 PM EDT [facility] CALCIUM 9.4 9.1 - 10.5 mg/dL 12/01/2019 10:23 PM EDT [facility] T BILI 0.6 0.2 - 1.2 mg/dL 12/01/2019 10:23 PM EDT [facility] SGOT (AST) 16 5 - 34 U/L 12/01/2019 10:23 PM EDT [facility] SGPT (ALT) 21 0 - 55 U/L 12/01/2019 10:23 PM EDT [facility] ALKALINE PHOSPHATASE 70 40 - 150 U/L 12/01/2019 10:23 PM EDT [facility] GFR, EST. NONAFRICAN >60 >=60 12/01/2019 10:23 PM EDT [facility] GFR, EST. >60 >=60 12/01/2019 10:23 PM EDT [facility] Comment: Creatinine Clearance is the preferred criteria for selecting drug dose adjustments in renally impaired patients. ??The GFR is provided as additional pertinent clinical information. GFR is reported in mL/min/1.73 sq m. Blood Venipuncture / Unknown 12/01/2019 9:49 PM EDT 12/01/2019 10:07 PM EDT Zackary Christy MD CHEMISTRY ORDERABLES F inal Result [facility] [id number] [place] [address], [place] [phone] documented in this encounter Visit Diagnoses Diagnosis [...] RN) documented in this encounter Care Teams Psychological Aide Relationship Specialty Start Date End Date Provider, None [place] PCP - General 12/01/19 documented as of this encounter
== END 2024-05-22 03:45 | disposition home or self-care (01) ==
PROVIDERS: Emergency Medicine; Emergency Provider Registered Nurse
DX: E86.0 Dehydration (principal); N28.9 Disorder of kidney and ureter, unspecified; Z86.73 Personal history of transient ischemic attack (TIA), and cerebral infarction without residual deficits; K80.20 Calculus of gallbladder without cholecystitis without obstruction; I71.21 Aneurysm of the ascending aorta, without rupture; R00.0 Tachycardia, unspecified; R94.31 Abnormal electrocardiogram [ECG] [EKG]
CPT/HCPCS: 36415; 70450; 71046; 71275; 80053; 83690; 84484; 85025; 85610; 85730; 93005; 96361; 96374; 96376; 99284; J1885; J7030; Q9967